=== PATIENT | male | born 2000 | race Caucasian/White ===

== ENCOUNTER 2021-06-25 13:53 | Emergency (ER) | payer SELFPAY ==
[2021-06-25 14:36] LABS: Absolute Lymphocytes (CBC) 0.9 K/uL (0.7-4.9); Basophils % 0.4 % (0-1.3); Hematocrit 48.3 % (39.6-49.0); Lymphocytes % 10.3 % (15.3-44.8); MPV 8.9 fL (7.6-11.3); RBC Red Blood Cell Count 5.41 M/uL (4.33-5.43)
[2021-06-25 14:46] LABS: BUN Blood Urea Nitrogen 11 mg/dL (7-18); Bicarbonate 25 mmol/L (21-32); Glucose Level 97 mg/dL (74-106); Sodium Level 140 mmol/L (136-145)
[2021-06-25] MEDS ORDERED: levETIRAcetam 1,000 MG in NA CHLORIDE 0.9% 100 ML IV ONE (15:00)
--- NOTE | 2021-06-25 15:24 | EDPHYS ---
Physician Documentation [facility] Name: Dayton Linton Age: 20 yrs Sex: Male : 2000 Arrival Date: 06/25/2021 Time: 13:54 Bed 10 Private MD: ED Physician Mignon Garza HPI: 06/25 15:21 This 20 yrs old Male presents to ER via Ambulatory with complaints of Seizure.kb 15:21 The patient presents after having a single isolated seizure, that lasted. Character of kb seizure(s): Loss of consciousness: the patient did not lose consciousness, Motor activity: generalized, shaking all over, Incontinence: none, Apnea: the patient did not experience apnea, Circulation: the patient did not experience evidence of pulse disturbance. The patient has not experienced similar symptoms in the past. 15:21 Seizure onset: just prior to arrival. Context: the seizure(s) was witnessed, by family, kb mother, occurred in the car, occurred while the patient was sitting, Contributing factors: missed recent doses of medications. Seizure Hx: Original onset: longstanding. Associated injury: The patient did not suffer any apparent associated injury. Current symptoms: Currently, the patient is not experiencing any symptoms, the patient feels back to baseline, no decreased level of consciousness, no confusion, no dysphasia, no headache, no paralysis, no visual changes. The patient has not recently seen a physician. Pt reports he has been out of his meds for 4 days. Had a seizure just machine captain. States it feels like one of his normal seizures. States he feels ok now, just knows he needs keppra. Historical: - Allergies: 14:02 No Known Allergies; aa5 - Home Meds: 14:02 Keppra Oral [Active]; aa5 - PMHx: 14:02 Seizure; aa5 - PSHx: 14:02 None; aa5 - Immunization history:: Client reports having NOT received the Covid vaccine. - Social history:: Smoking status: Patient reports the use of cigarette tobacco products, smokes one-half pack cigarettes per day. ROS: 15:22 Constitutional: Negative for fever, chills, and weight loss. kb 15:22 Neuro: Positive for seizure activity. 15:22 All other systems are negative. Exam: 15:22 Constitutional: This is a well developed, well nourished patient who is awake, alert, kb and in no acute distress. Head/Face: Normocephalic, atraumatic. ENT: Moist Mucous membranes Respiratory: Respirations even and unlabored. No increased work of breathing, no retractions or nasal flaring. Skin: Warm, dry with normal turgor. Normal color. MS/ Extremity: Pulses equal, no cyanosis. Neurovascular intact. Full, normal range of motion. Neuro: Awake and alert, GCS 15, oriented to person, place, time, and situation. Moves all extremities. Normal gait. Psych: Awake, alert, with orientation to person, place and time. Behavior, mood, and affect are within normal limits. Vital Signs: 14:02 BP 133 / 78; Pulse 94; Resp 16 S; Temp 98.2(O); Pulse Ox 99% on R/A; Weight 92.08 kg aa5 (R); Height 5 ft. 11 in. (180.34 cm) (R); 16:00 BP 121 / 69; Pulse 91; Resp 18; Temp 98.5; Pulse Ox 99% ; bp 14:02 Body Mass Index 28.31 (92.08 kg, 180.34 cm) aa5 Germaine Coma Score: 14:05 Eye Response: spontaneous(4). Verbal Response: oriented(5). Motor Response: obeys kg commands(6). Total: 15. MDM: 14:12 Patient medically screened. kb 15:22 Data reviewed: vital signs, nurses notes. Data interpreted: Pulse oximetry: on room air kb is 99 %. Interpretation: normal. Counseling: I had a detailed discussion with the patient and/or guardian regarding: the historical points, exam findings, and any diagnostic results supporting the discharge/admit diagnosis, lab results, the need for outpatient follow up, a family practitioner, to return to the emergency department if symptoms worsen or persist or if there are any questions or concerns that arise at home. 06/25 14:11 Order name: CBC with Diff; Complete Time: 14:54 aa5 06/25 14:11 Order name: Basic Metabolic Panel; Complete Time: 14:54 aa5 06/25 14:11 Order name: IV Start; Complete Time: 14:13 aa5 Administered Medications: 14:33 Drug: Keppra (levETIRAcetam) 1000 mg Route: IV; Rate: calculated rate; Site: right bp antecubital; Disposition Summary: 06/25/21 15:23 Discharge Ordered Location: Home kb Condition: Stable kb Diagnosis - Epileptic seizures related to external causes kb Followup: kb - With: Emergency Department - When: As needed - Reason: Worsening of condition Followup: kb - With: Private Physician - When: 2 - 3 days - Reason: Recheck today's complaints, Continuance of care, Re-evaluation by your physician Discharge Instructions: - Discharge Summary Sheet kb - Seizure, Adult, [id number] kb Forms: - Medication Reconciliation Form kb - Thank You Letter kb - Antibiotic Education kb - Prescription Opioid Use kb Prescriptions: - Keppra 500 mg Oral Tablet - take 1 tablet by ORAL route every 12 hours; 60 tablet; Refills: 0, Product kb Selection Permitted Signatures: Dispatcher [employer] EDMS Denia Bunch, Neha Garcia RN RN aa5 Paul Underwood, RN RN bp Corrections: (The following items were deleted from the chart) 15:24 15:21 Pt reports he has been out of his meds for 4 days. Had a seizure just machine captain. . kb kb
--- NOTE | 2021-06-25 15:24 | ER ---
Nurse's Notes [facility] Name: Dayton Linton Age: 20 yrs Sex: Male : 2000 Arrival Date: 06/25/2021 Time: 13:54 Bed 10 Private MD: Diagnosis: Epileptic seizures related to external causes Presentation: 06/25 14:01 Chief complaint: Patient states: "I had a seizure in the car". Pt's mother reports she aa5 was driving and seizure activity for "3 to 4 minutes". Pt currently AO x 4. Coronavirus screen: At this time, the client does not indicate any symptoms associated with coronavirus-19. Ebola Screen: Patient negative for fever greater than or equal to 101.5 degrees Fahrenheit, and additional compatible Ebola Virus Disease symptoms. Initial Sepsis Screen: Does the patient meet any 2 criteria? No. Patient's initial sepsis screen is negative. Does the patient have a suspected source of infection? No. Patient's initial sepsis screen is negative. Risk Assessment: Do you want to hurt yourself or someone else? Patient reports no desire to harm self or others. Onset of symptoms was June 2021. 14:01 Method Of Arrival: Ambulatory aa5 14:01 Acuity: MARY 3 aa5 Triage Assessment: 14:05 General: Appears in no apparent distress. comfortable, Behavior is calm, cooperative, kg appropriate for age. Pain: Denies pain. EENT: No deficits noted. Neuro: Level of Consciousness is awake, alert, obeys commands, Oriented to Appropriate for age. Cardiovascular: No deficits noted. Respiratory: No deficits noted. GI: No signs and/or symptoms were reported involving the gastrointestinal system. : No signs and/or symptoms were reported regarding the genitourinary system. Derm: No deficits noted. Musculoskeletal: No deficits noted. Historical: - Allergies: 14:02 No Known Allergies; aa5 - Home Meds: 14:02 Keppra Oral [Active]; aa5 - PMHx: 14:02 Seizure; aa5 - PSHx: 14:02 None; aa5 - Immunization history:: Client reports having NOT received the Covid vaccine. - Social history:: Smoking status: Patient reports the use of cigarette tobacco products, smokes one-half pack cigarettes per day. Screenin:05 Abuse screen: Denies threats or abuse. Denies injuries from another. Nutritional kg screening: No deficits noted. Tuberculosis screening: No symptoms or risk factors identified. Fall Risk None identified. Assessment: 14:05 General: SEE TRIAGE NOTE. kg 15:00 Reassessment: No changes from previously documented assessment. Patient and/or family iw updated on plan of care and expected duration. Pain level reassessed. 16:11 Reassessment: PT D/C HOME AMBULATORY, DX WITH SZ D/O. iw Vital Signs: 14:02 BP 133 / 78; Pulse 94; Resp 16 S; Temp 98.2(O); Pulse Ox 99% on R/A; Weight 92.08 kg aa5 (R); Height 5 ft. 11 in. (180.34 cm) (R); 16:00 BP 121 / 69; Pulse 91; Resp 18; Temp 98.5; Pulse Ox 99% ; bp 14:02 Body Mass Index 28.31 (92.08 kg, 180.34 cm) aa5 Germaine Coma Score: 14:05 Eye Response: spontaneous(4). Verbal Response: oriented(5). Motor Response: obeys kg commands(6). Total: 15. ED Course: 13:54 Patient arrived in ED. as 14:02 Triage completed. aa5 14:02 Arm band placed on. aa5 14:05 Patient has correct armband on for positive identification. Bed in low position. Call kg light in reach. Side rails up X2. 14:05 Seizure precautions initiated. bp 14:11 Den[facility] Bunch F[facility]-C [facility]. aa5 14:11 Mignon Garza MD is Attending Physician. aa5 14:27 Paul Underwood, ZEHRA is Primary Nurse. bp 16:28 No provider procedures requiring assistance completed. IV discontinued, intact, bp bleeding controlled, No redness/swelling at site. Pressure dressing applied. Administered Medications: 14:33 Drug: Keppra (levETIRAcetam) 1000 mg Route: IV; Rate: calculated rate; Site: right bp antecubital; Outcome: 15:23 Discharge ordered by . kb 16:11 Patient left the ED. bp 16:30 Discharged to home ambulatory, with family. bp 16:30 Condition: stable 16:30 Discharge instructions given to patient, Instructed on discharge instructions, follow up and referral plans. medication usage, Demonstrated understanding of instructions, follow-up care, medications, Prescriptions given X 1. Signatures: Denia Bunch, [employer] ABUSE COUNSELOR-Sonja Zaidi Irene, RN RN iw Neha Ta RN RN aa5 Paul Underwood RN RN bp Elisabeth Chowdary RN RN kg Corrections: (The following items were deleted from the chart) 17:35 15:00 Reassessment: No changes from previously documented assessment. Patient and/or iw family updated on plan of care and expected duration. Pain level reassessed. Patient is alert, oriented x 3, equal unlabored respirations, skin warm/dry/pink. UNABLE TO OBTAIN PIV, MX STAFF AND MX ATTEMPTS. PROVIDER AWARE kg 17:35 16:00 Reassessment: No changes from previously documented assessment. kg iw 17:35 16:00 Reassessment: PERIPHERAL ACCESS IN PROCESS. PROVIDER AWARE bp iw
[2021-06-25 16:19] VITALS: BP 133/78; TEMP 98.2; O2SAT 99
== END 2021-06-25 16:11 | disposition home or self-care (01) ==
LOC: ER 13:53 → EDBD 13:53 → ER 16:11
DX: G40.509 Epileptic seizures related to external causes, not intractable, without status epilepticus (principal); F17.210 Nicotine dependence, cigarettes, uncomplicated
CPT/HCPCS: 36415; 80048; 85025; 96374; 99283; J1953